=== PATIENT | female | born 1990 | race Caucasian/White ===

== ENCOUNTER 2022-04-03 16:07 | Observation (INO) | payer SELFPAY ==
[2022-04-03] MEDS ORDERED: Ondansetron PF 4 MG/2 ML Vial ONE (16:28)
[2022-04-03] MEDS ORDERED: Morphine 4 MG/ML VIAL ONE (16:28)
[2022-04-03 17:10] LABS: #Eosinphils 0.2 thou/uL (0.0-0.7); #Lymphocytes 2.3 thou/uL (1.20-3.40); #Monocytes 0.4 thou/uL (0.11-0.59); #Neutrophils 4.8 thou/uL (1.40-6.50); %Basophils 0.2 % (0.0-1.0); %Eosinophils 2.8 % (0.0-10.0); %Lymphocytes 29.7 % (21.0-51.0); %Monocytes 4.7 % (0.0-10.0); %Neutrophils 62.7 % (42.0-75.0); Hemoglobin 13.1 g/dL (12.0-16.0); Mean Corpuscular HGB CONC 33.9 g/dL (32.0-36.0); Mean Corpuscular Volume 91.6 fl (78.0-98.0); Mean Platelet Volume 6.6 fL (7.4-10.4); Platelet Count 236 10x3/uL (130-400); RBC Distribution Width 11.2 % (11.5-14.5); Red Blood Cell (RBC) Count 4.21 mill/uL (4.20-5.40); White Blood Cell (WBC) Count 7.6 10x3/uL (4.8-10.8)
[2022-04-03 17:12] LABS: BHCG - Serum Negative (NEGATIVE); Pregs Control Background? CLEAR/WHITE (CLR/WHITE); Pregs Control Bar Appear? YES (CONTROL BAR)
[2022-04-03 17:20] LABS: INR-International Normal Ratio 1.1; PTT 28.2 sec (22.9-36.1); Prothrombin Time 14.2 sec (12.0-14.7)
[2022-04-03 17:30] LABS: ALT (SGPT) 27 U/L (8-55); AST (SGOT) 11 U/L (5-34); Albumin 3.8 g/dL (3.5-5.0); Alkaline Phosphatase 66 U/L (40-110); Anion Gap 10 mmol/L (10-20); BUN (Urea Nitrogen) 15 mg/dL (7.0-18.7); Bilirubin, Total 0.9 mg/dL (0.2-1.2); Calc. Creatinine Clearance 0 mL/min (70-130); Calcium 8.4 mg/dL (7.8-10.44); Carbon Dioxide 26 mmol/L (22-29); Chloride 107 mmol/L (98-107); Estimated GFR 97; Globulin 2.5 g/dL (2.4-3.5); Glucose 102 mg/dL (70-105); Lipase 43 U/L (8-78); Potassium 3.9 mmol/L (3.5-5.1); Protein, Total 6.3 g/dL (6.0-8.3); Sodium 139 mmol/L (136-145)
[2022-04-03 18:06] LABS: Bacteria/HPF None Seen HPF (None Seen); Bilirubin Negative (Negative); Blood, Urine Negative (Negative); Clarity Clear (Clear); Glucose, Urine (Dipstick) Normal (Negative); Ketone, Urine 10 mg/dL (Negative); Leukocyte 75 Leu/uL (Negative); Nitrite Negative (Negative); Protein, Urine (Dipstick) 10 mg/dL (Neg-Trace); Specific Gravity, Urine 1.024 (1.002-1.036); Urobilinogen Normal mg/dL (Less than 2); WBC/HPF 0-3 HPF (0-3); pH, Urine 6.5 (5.0-9.0)
[2022-04-03 20:08] VITALS: BMI 38.2
[2022-04-03] MEDS ORDERED: Morphine 4 MG/ML VIAL SLOW IVP PRN (22:42)
[2022-04-03] MEDS ORDERED: Ondansetron PF 4 MG/2 ML Vial IVP PRN (22:45)
[2022-04-03] MEDS ORDERED: Ondansetron ODT 4 MG TAB SL PRN (22:45)
[2022-04-03] MEDS ORDERED: D5 1/2 NS w/20 mEq KCL 1,000 ML IV SCH (22:45)
[2022-04-03] MEDS ORDERED: Piperacillin/Tazobactam 3.375 GM in Sodium Chloride 0.9% 100 ML IVPB SCH (23:00)
[2022-04-03 23:07] LABS: SARS-CoV-2 NAA Rapid Test Not Detected (NotDetected)
[2022-04-04] MEDS ORDERED: Ketorolac Tromethamine 30 MG/ML VIAL IVP PRN (07:40)
[2022-04-04] MEDS ORDERED: Ondansetron ODT 4 MG TAB PO PRN (07:40)
[2022-04-04] MEDS ORDERED: Ondansetron PF 4 MG/2 ML Vial IVP PRN (07:40)
[2022-04-04] MEDS ORDERED: Morphine 4 MG/ML VIAL SLOW IVP PRN (07:40)
[2022-04-04] MEDS ORDERED: Lactated Ringer's 1,000 ML IV SCH (07:45)
[2022-04-04] MEDS ORDERED: Scopolamine 1.5 mg/72 hour Patch TD SCH (08:00)
[2022-04-04] MEDS ORDERED: Ketorolac Tromethamine 30 MG/ML VIAL IVP SCH (08:00)
[2022-04-04] MEDS ORDERED: Pantoprazole 40 MG VIAL IVP SCH (09:00)
[2022-04-04] MEDS ORDERED: Midazolam HCl 2 mg/2 ml Vial ONE (11:56)
[2022-04-04] MEDS ORDERED: CEFAZOLIN 2 GM VIAL ONE (12:07)
[2022-04-04] MEDS ORDERED: Sodium Chloride 0.9% 100 ML ONE (12:07)
[2022-04-04] MEDS ORDERED: Bupivacaine HCl 0.5%/Epinephrine 1:200,000/PF 30 ml Vial ONE (12:09)
[2022-04-04] MEDS ORDERED: fentaNYL PF 100 MCG/2 ML SYRINGE ONE ×2 (12:16→12:17)
[2022-04-04] MEDS ORDERED: Glycopyrrolate 0.2 MG/ML 5 ML SYRINGE ONE (12:33)
[2022-04-04] MEDS ORDERED: Rocuronium Bromide 10 MG/ML (10ML VIAL) ONE (12:33)
[2022-04-04] MEDS ORDERED: NEOSTIGMINE 3 MG/3 ML SYR 3 MG/3 ML SYRINGE ONE (12:33)
[2022-04-04] MEDS ORDERED: Dexamethasone 20 MG/5 ML VIAL ONE (12:33)
[2022-04-04] MEDS ORDERED: Lidocaine 1% PF 5 ML VIAL ONE (12:33)
[2022-04-04] MEDS ORDERED: Ketorolac Tromethamine 30 MG/ML VIAL ONE (12:33)
[2022-04-04] MEDS ORDERED: PROPOFOL 200 MG/20 ML VIAL ONE (12:33)
[2022-04-04] MEDS ORDERED: Ondansetron PF 4 MG/2 ML Vial ONE (12:33)
[2022-04-04] MEDS ORDERED: SUGAMMADEX SODIUM 200 MG/2 ML VIAL ONE (13:08)
[2022-04-04] MEDS ORDERED: Fentanyl 100 MCG/2 ML VIAL ONE (13:21)
[2022-04-04] MEDS ORDERED: Meperidine HCl/PF 25 MG/ML VIAL SLOW IVP PRN (13:24)
[2022-04-04] MEDS ORDERED: Promethazine HCl 25 MG/ML VIAL IM PRN (13:24)
[2022-04-04] MEDS ORDERED: HYDROmorphone 2 MG/ML VIAL SLOW IVP PRN (13:24)
[2022-04-04] MEDS ORDERED: traMADol HCl 50 MG TAB PO PRN (13:29)
[2022-04-04] MEDS ORDERED: Ibuprofen 600 MG TAB PO PRN (13:29)
[2022-04-04] MEDS ORDERED: Acetaminophen 500 MG TAB PO PRN (13:29)
[2022-04-04] MEDS ORDERED: Promethazine HCl 25 MG/ML VIAL ONE (13:34)
[2022-04-04] MEDS ORDERED: Methocarbamol 500 MG TAB PO PRN (13:51)
[2022-04-04] MEDS ORDERED: Acetaminophen 500 MG TAB PO SCH (14:00)
[2022-04-04 15:02] VITALS: BP 159/88; TEMP 98.5
[2022-04-04] MEDS ORDERED: traMADol HCl 50 MG TAB PO SCH (17:00)
[2022-04-07] MEDS ORDERED: FLU VACC QS2022-23(6MOS UP)/PF 60 MCG/0.5 ML SYRINGE IM ONE (09:00)
== END 2022-04-04 17:42 | disposition home or self-care (01) ==
LOC: ERS 16:07 → SJJU 18:06
PROVIDERS: ADMIT Specialist; ATTEND Specialist
PROC: 0FT44ZZ Resection of Gallbladder, Percutaneous Endoscopic Approach (ICD-10-PCS; principal; 2022-04-04)
DX: K80.12 Calculus of gallbladder with acute and chronic cholecystitis without obstruction (principal); F17.290 Nicotine dependence, other tobacco product, uncomplicated; Z86.16 Personal history of COVID-19; Z88.0 Allergy status to penicillin; Z20.822 Contact with and (suspected) exposure to COVID-19
CPT/HCPCS: 36415; 71045; 76705; 80053; 81003; 81015; 83690; 84703; 85025; 85610; 85730; 88304; 96361; 96365; 96366; 96375; 96376; C1889; C9113; G0378; J1100; J1885; J1956; J2250; J2270; J2405; J2543; J2550; J2704; J3010; J3480; J3490; J7120; U0002